=== PATIENT | female | born 2000 ===

== ENCOUNTER 2022-10-16 20:53 | Emergency (ER) | payer MEDICAID, OTHER ==
[~2022-10-16] VITALS: Ht 167.6 cm; Wt 62.7 kg
[2022-10-16 22:05] LABS: Urine Amorphous Crystal FEW /hpf (None Seen); Urine Bacteria NONE SEEN /hpf (None Seen); Urine Blood Negative /uL (Negative); Urine Mucus MANY (None Seen); Urine Specific Gravity 1.047 (1.001-1.035); Urine WBC 1 /hpf (0 - 5)
[2022-10-16 22:19] LABS: Albumin 3.8 g/dL (3.4-5.0); Calcium 9.6 mg/dL (8.5-10.1); Potassium 3.3 mmol/L (3.5-5.1)
[2022-10-16 22:24] LABS: BUN/Creatinine Ratio 9.3 (10.0-20.0); Bilirubin, Total 0.7 mg/dL (0.2-1.0)
[2022-10-16 22:48] LABS: Basophils # (auto) 0 10 ^3/uL (0-0.2); Basophils % (auto) 0.2 % (0.0-2.0); Eosinophils # (auto) 0 10 ^3/uL (0-0.8); Eosinophils % (auto) 0.1 % (0.0-7.0); Hematocrit 32.2 % (36.0-46.0); Lymphocytes # (auto) 1.6 10 ^3/uL (0.4-5.4); Lymphocytes % (auto) 15.8 % (10.0-50.0); Mean Corpuscular Hemoglobin 21.9 pg (28.0-32.0); Mean Corpuscular Hgb Conc. 31.1 g/dL (32.0-36.0); Mean Corpuscular Volume 70.3 fL (80.0-100.0); Monocytes # (auto) 0.7 10 ^3/uL (0-1.3); Monocytes % (auto) 7.5 % (0.0-12.0); Neutrophils # (auto) 7.6 10 ^3/uL (1.6-8.6); Neutrophils % (auto) 76.4 % (37.0-80.0); Nucleated Red Blood Cells % 0.2 %; Red Blood Cells 4.58 10^6/uL (4.0-5.20); Red Cell Distribution Width 18.5 % (11.8-14.3); White Blood Cell 9.9 10^3/uL (4.4-10.8)
[2022-10-17] MEDS ORDERED: OXYCODONE W/ ACETAMINOPHEN 5/325MG TABLET PO ONE (03:00)
[2022-10-17] MEDS ORDERED: ONDANSETRON ODT 4 MG TAB PO ONE (03:00)
[2022-10-17] MEDS ORDERED: CIPROFLOXACIN HCL 500 MG TAB PO ONE (03:00)
[2022-10-17] MEDS ORDERED: PERCOT PO (03:02)
[2022-10-17] MEDS ORDERED: ONDA-144 PO (03:02)
[2022-10-17] MEDS ORDERED: CIPR-173 PO (03:02)
[2022-10-17 03:40] VITALS: BP 131/68
== END 2022-10-17 03:46 | disposition home or self-care (01) ==
LOC: ER 20:53
DX: I88.0 Nonspecific mesenteric lymphadenitis (principal); R10.2 Pelvic and perineal pain
CPT/HCPCS: 36415; 74176; 80053; 81001; 83690; 84702; 85025